=== PATIENT | female | born 1995 | race Caucasian/White ===

== ENCOUNTER 2016-09-11 | Emergency (ER) | END 2016-09-11 02:15 | disposition left against medical advice (07) | LOC: ER | DX: Z53.21 Procedure and treatment not carried out due to patient leaving prior to being seen by health care provider (principal) ==

== ENCOUNTER 2017-02-13 10:50 | Emergency (ER) | payer BC ==
[2017-02-13 10:56] VITALS: BP 142/94
--- NOTE | 2017-02-13 11:11 | ER Document Report ---
ED Oral Problem - General Chief Complaint: Toothache Stated Complaint: MOUTH PAIN Time Seen by Provider: 02/13/17 11:06 Mode of Arrival: Ambulatory Information source: Patient TRAVEL OUTSIDE OF THE [place] IN LAST 30 DAYS: No - HPI Patient complains to provider of: Toothache Onset: Other - 3 days Onset: Gradual Quality of pain: Achy Severity: Moderate Pain Level: 3 Context: Fractured tooth Associated symptoms: None Notes: Patient is a 21-year-old female presenting to the emergency room complaining of dental pain, she states that approximately 6 months ago she broke a tooth, the left mandibular molar, she has been having intermittent problems with the tooth since, increasing over the past 3 days, she reports feeling a pain sensation throughout her lower jaw at times, and some facial swelling, denies any fevers, no pus drainage, no new injury, she does not currently have a dentist and has not been seen by dentist since the tooth broke - Related Data Allergies/Adverse Reactions: tuberculin,PPD,multi-puncture Allergy (Intermediate, Verified 02/13/17 11:12) Hives Past Medical History - General Information source: Patient - Social History Smoking Status: Current Every Day Smoker Chew tobacco use (# tins/day): No Frequency of alcohol use: None Drug Abuse: None Family History: Reviewed & Not Pertinent Pulmonary Medical History: Reports: Hx Asthma Renal/ Medical History: Denies: Hx Peritoneal Dialysis Surgical Hx: Negative Review of Systems - Review of Systems Constitutional: No symptoms reported EENT: See HPI, Mouth pain Cardiovascular: No symptoms reported Respiratory: No symptoms reported Gastrointestinal: No symptoms reported Genitourinary: No symptoms reported Female Genitourinary: No symptoms reported Musculoskeletal: No symptoms reported Skin: No symptoms reported Hematologic/Lymphatic: No symptoms reported Neurological/Psychological: No symptoms reported -: Yes All other systems reviewed and negative Physical Exam - Vital signs Vitals: Temp Pulse Resp BP Pulse Ox 98.7 F 106 H 18 142/94 H 98 02/13/17 10:54 02/13/17 10:54 02/13/17 10:54 02/13/17 10:54 02/13/17 10:54 Interpretation: Normal - General General appearance: Appears well, Alert In distress: None - HEENT Head: Normocephalic, Atraumatic Eyes: Normal Conjunctiva: Normal Extraocular movements intact: Yes Eyelashes: Normal Pupils: PERRL Mouth/Lips: Dental fracture - Mild swelling erythema and swelling surrounding tooth #17 with dental fracture Mucous membranes: Normal Teeth diagram: 1 - Dental fracture Pharynx: Normal Neck: Normal - Respiratory Respiratory status: No respiratory distress - Cardiovascular Rhythm: Regular - Abdominal Inspection: Normal, Obese - Back Back: Normal - Extremities General upper extremity: Normal inspection, Normal color, Normal ROM, Normal temperature General lower extremity: Normal inspection, Normal color, Normal ROM, Normal temperature, Normal weight bearing. No: Marivel's sign - Neurological Neuro grossly intact: Yes Cognition: Normal Orientation: AAOx4 Shaka Coma Scale Eye Opening: Spontaneous [place] Coma Scale Verbal: Oriented [place] Coma Scale Motor: Obeys Commands Shaka Coma Scale Total: 15 Speech: Normal Motor strength normal: LUE, RUE, LLE, RLE Sensory: Normal - Psychological Associated symptoms: Normal affect, Normal mood - Skin Skin Temperature: Warm Skin Moisture: Dry Skin Color: Normal Course - Re-evaluation Re-evalutation: 02/13/17 11:35 Patient with pain from dental fracture, mild surrounding erythema, placed on antibiotics and provided with pain medication, instructed to follow-up with a dentist, patient acknowledges understanding and agreement with this plan - Vital Signs Vital signs: Temp Pulse Resp BP Pulse Ox 98.7 F 106 H 18 142/94 H 98 02/13/17 10:54 02/13/17 10:54 02/13/17 10:54 02/13/17 10:54 02/13/17 10:54 Discharge - Discharge Clinical Impression: Toothache Condition: Stable Disposition: HOME, SELF-CARE Instructions: [facility], Oral Narcotic Medication ([facility]), Penicillin V K ([facility]), Toothache ([facility]) Additional Instructions: Follow up with your primary care provider and a dentist in one to 2 days. Return to the emergency room immediately if symptoms worsen or any additional concerns. Prescriptions: Hydrocodone/Acetaminophen [Hydrocodon-Acetaminophen 5-325] 1 each PO Q6 #20 tablet Penicillin V Potassium [Penicillin Vk 500 mg Tablet] 500 mg PO TID #30 tablet Forms: Smoking Cessation Education, Return to Work
== END 2017-02-13 11:20 | disposition home or self-care (01) ==
LOC: ER 10:50
DX: K08.89 Other specified disorders of teeth and supporting structures (principal); F17.200 Nicotine dependence, unspecified, uncomplicated
CPT/HCPCS: 99282

== ENCOUNTER 2017-02-17 13:10 | Emergency (ER) | payer BC ==
[2017-02-17] MEDS ORDERED: BUPIVACAINE HCL 0.5 % INJ/PF 30 ML SDV INJ ONE (14:30)
--- NOTE | 2017-02-17 14:33 | ER Document Report ---
ED Oral Problem - General Chief Complaint: Toothache Stated Complaint: MOUTH PAIN Time Seen by Provider: 02/17/17 14:17 TRAVEL OUTSIDE OF THE U.S. IN LAST 30 DAYS: No - HPI Patient complains to provider of: Toothache Onset: Last week Onset: Gradual Quality of pain: Achy, Throbbing Severity: Moderate Context: Fractured tooth Associated symptoms: denies: None, Chills, Cough, Decreased appetite, Dental decay, Difficulty speaking, Drainage, Drooling, Earache, Facial pain, Fever, Headache, Jaw pain, Short of breath, Sweaty, Toothache, Tongue swelling, Unable to swallow, White patches in mouth, Other Worsened by: Cold Relieved by: Nothing Similar symptoms previously: No Recently seen / treated by doctor/dentist: No - States that she is no longer able to afford her Dentist. - Related Data Allergies/Adverse Reactions: tuberculin,PPD,multi-puncture Allergy (Intermediate, Verified 02/17/17 13:15) Hives Past Medical History - Social History Smoking Status: Current Every Day Smoker Chew tobacco use (# tins/day): No Frequency of alcohol use: None Drug Abuse: None Family History: Reviewed & Not Pertinent Pulmonary Medical History: Reports: Hx Asthma Renal/ Medical History: Denies: Hx Peritoneal Dialysis Review of Systems - Review of Systems Constitutional: No symptoms reported EENT: See HPI -: Yes All other systems reviewed and negative Physical Exam - Vital signs Vitals: Temp Pulse Resp BP Pulse Ox 97.9 F 108 H 18 124/81 97 02/17/17 13:14 02/17/17 13:14 02/17/17 13:14 02/17/17 13:14 02/17/17 13:14 - General General appearance: Appears well, Alert In distress: None - HEENT Mouth/Lips: Caries, Dental fracture - Tooth 17 without surrounding abscess. Pharynx: Normal. No: Peritonsillar abscess, Retropharyngeal abscess, Potential airway comprom. Neck: Normal, Other - No evidence of Marv's angina - Respiratory Respiratory status: No respiratory distress Chest status: Nontender Breath sounds: Normal Chest palpation: Normal - Cardiovascular Rhythm: Regular Heart sounds: Normal auscultation, S1 appreciated, S2 appreciated Gallop: None auscultated Pulses: Normal: Radial Course - Re-evaluation Re-evalutation: 02/17/17 14:30 Presentation is most consistent with likely an infected tooth. Airway is patent. Vitals within normal limits. Patient is able swallow without any difficulty. There is no significant facial swelling. Patient will continue antibiotics. I've instructed to follow-up with dentistry as earliest ability for definitive management. Return precautions and follow-up recommendations have been discussed at length. - Vital Signs Vital signs: Temp Pulse Resp BP Pulse Ox 98.4 F 89 16 120/79 98 02/17/17 15:19 02/17/17 15:19 02/17/17 15:19 02/17/17 15:19 02/17/17 15:19 Discharge - Discharge Clinical Impression: Toothache Condition: Good Disposition: HOME, SELF-CARE Additional Instructions: TOOTHACHE: Your pain is due to dental decay. The tooth must be repaired in order for you to feel better. You will, therefore, be referred to a dentist. We do not have dentists on the staff at [facility]. Severe swelling or drainage around a tooth usually means a dental abscess. This also requires evaluation and treatment by the dentist, but antibiotics may be prescribed while awaiting dental treatment. You should be rechecked immediately if you develop major swelling of the face, increasing pain, a lump in the jaw or gums, headache, difficulty swallowing, or fever. PENICILLIN V K: You have been given a prescription for Penicillin VK. Your physician has determined that this is the best antibiotic for your condition. Pen VK can be taken with meals, however more of the antibiotic gets into the bloodstream if it's taken on an empty stomach. Penicillin usually has no side effects. However, allergy to penicillins is common. If you have had an allergic reaction to any drug of the penicillin family, you should never take any other penicillin. Notify your doctor at once if you develop hives, itching, swelling, faintness, or shortness of breath. [facility] Address: [address], [place] [address] [facility] Address: [address], [place] [address] FOLLOW-UP CARE: You have been referred for follow-up care to the dentists listed below. Call the dentists office for an appointment as you were instructed or within the next two days. If you experience worsening or a significant change in your symptoms, notify the physician immediately or return to the Emergency Department at any time for re-evaluation. [facility] [address] [place], [place] mornings, by appointment [facility] [address] [place] [address] [facility] [address] [facility] [address] [facility] [address] [email or web address] [address] [place] [address] Wednesday- 8:00am to 5:00 pm Will see patients from other [facility]. Charges based on income and family size and accepts Medicare, Medicaid, and Insurances Will pull molars [facility] [address] Hours of Operation 8:00 am - 4:30 pm weekdays The following dental offices accept Medicaid: [facility] [address] [place] Dr. Howard Dr. Tong Mainor Young L[place], and [facility] Dr. Manrique ([place]) Dr. Robertson ([place]) [facility] Drs. Adkins and Fabio ([place]) Dr. Valadez ([place]) [facility] Dr. Mcginnis ([place]) Drs. Pink and ([place]) Medicaid Care Line Forms: Return to Work
[2017-02-17 15:25] VITALS: BP 120/79
== END 2017-02-17 15:22 | disposition home or self-care (01) ==
LOC: ER 13:10
DX: K02.9 Dental caries, unspecified (principal); K08.89 Other specified disorders of teeth and supporting structures; F17.200 Nicotine dependence, unspecified, uncomplicated; J45.909 Unspecified asthma, uncomplicated; Z59.9 Problem related to housing and economic circumstances, unspecified; Z88.7 Allergy status to serum and vaccine
CPT/HCPCS: 99282

== ENCOUNTER 2017-03-07 22:03 | Emergency (ER) | payer BC ==
[2017-03-07 23:28] LABS: APPEARANCE,URINE SLIGHTLY-CLOUDY; BILIRUBIN,URINE NEGATIVE (NEGATIVE); GLUCOSE, URINE NEGATIVE (NEGATIVE); KETONES,URINE NEGATIVE (NEGATIVE); LEUKOCYTE ESTERASE,URINE TRACE (NEGATIVE); NITRITE,URINE NEGATIVE (NEGATIVE); PROTEIN,URINE NEGATIVE (NEGATIVE); URINE SPECIFIC GRAVITY 1.036
[2017-03-08] MEDS ORDERED: BUTALB/ACETAMINOPHEN/CAFFEINE 1 TAB EACH PO ONE (00:49)
--- NOTE | 2017-03-08 00:55 | ER Document Report ---
ED General - General Chief Complaint: Fall Stated Complaint: FALL, POSSIBLE SYNCOPAL EPISODE Time Seen by Provider: 03/07/17 23:50 Notes: Patient is a 21-year-old female with past medical history of morbid obesity who presents after she had a syncopal episode 48 hours ago. Patient states that she was walking to work, became lightheaded and then had an episode of syncope. She states she remembers falling to the ground and striking her right shoulder and right knee as well as the right side of her head. States that she was able to get up, ambulate and go to work and function throughout the day without difficulty. She was states that since that time she has had a dull, constant throbbing pain to her right shoulder right knee. Movement of these areas worsens the pain. She has not tried anything to improve the pain. She also notes that she has had a dull, constant throbbing headache since the injury. The headache has been unchanged since onset. She denies any vomiting, weakness, numbness, or altered mental status. She does not use anticoagulation. She does not try to think to treat headache. She has not seen her primary care doctor regarding today's concerns. He denies any history of sudden cardiac within her family. She does admit to poor fluid intake and her significant at the bedside notes that she was never drinks water only soda and tea. TRAVEL OUTSIDE OF THE [place] IN LAST 30 DAYS: No - Related Data Allergies/Adverse Reactions: tuberculin,PPD,multi-puncture Allergy (Intermediate, Verified 03/07/17 22:41) Hives Past Medical History - General Information source: Patient - Social History Smoking Status: Never Smoker Frequency of alcohol use: None Drug Abuse: None Lives with: Spouse/Significant other Family History: Reviewed & Not Pertinent Patient has suicidal ideation: No Patient has homicidal ideation: No Pulmonary Medical History: Reports: Hx Asthma Renal/ Medical History: Denies: Hx Peritoneal Dialysis Review of Systems - Review of Systems Notes: Constitutional: Negative for fever. HENT: Negative for sore throat. Eyes: Negative for visual changes. Cardiovascular: Negative for chest pain. Respiratory: Negative for shortness of breath. Gastrointestinal: Negative for abdominal pain, vomiting or diarrhea. Genitourinary: Negative for dysuria. Musculoskeletal: Positive for right shoulder and right knee pain Skin: Negative for rash. Neurological: Positive for headache 10 point ROS negative except as marked above and in HPI. Physical Exam - Vital signs Vitals: Temp Pulse Resp BP Pulse Ox 98.7 F 105 H 20 141/76 H 97 03/07/17 22:39 03/07/17 22:39 03/07/17 22:39 03/07/17 22:39 03/07/17 22:39 Interpretation: Tachycardic Notes: PHYSICAL EXAMINATION: GENERAL: Well-appearing, no acute distress. HEAD: Atraumatic, normocephalic. EYES: Pupils equal round and reactive to light, extraocular movements intact, sclera anicteric, conjunctiva are normal. ENT: nares patent, no oral pharyngeal trauma. No hemotympanum, no Pollock's sign , no raccoon eyes. NECK: No midline cervical spine tenderness. Patient able to move their head to 45 bilaterally without any discomfort. LUNGS: Breath sounds clear to auscultation bilaterally and equal. No wheezes rales or rhonchi. HEART: Regular rate and rhythm without murmurs. CHEST WALL: No ecchymosis over the chest wall. ABDOMEN: Soft, nontender, normoactive bowel sounds. No guarding, no rebound. No abdominal bruising EXTREMITIES: Able to flex the right knee to 90. There is slight ecchymosis over the patellar surface of the right knee. Mild bruising over the lateral aspect of the right shoulder. Otherwise full range of motion of the shoulder. BACK: No midline spinal tenderness, step-offs, or deformities. NEUROLOGICAL: Face symmetric. Tongue protrudes midline. Extraocular motions intact. Pupils are 2 mm and equally reactive. Normal speech, normal gait. 5 out of 5 strength in both the distal and proximal upper and lower extremities bilaterally. Sensation is grossly intact throughout. Finger to nose testing normal. Pronator drift normal. PSYCH: Normal mood, normal affect. SKIN: Warm, Dry, normal turgor, no rashes or lesions noted. Course - Re-evaluation Re-evalutation: 03/08/17 00:49 Presentation of syncope 2 days ago likely secondary to dehydration. Patient normotensive, alert, without focal neurologic deficits at time of arrival. Denies syncope was during exertion. No preceding symptoms of palpitations, chest pain, or shortness of breath. Patient asymptomatic at time of arrival. EKG is without evidence of HCOM, right heart strain, ST changes to suggest ischemia, prolong QTc, delta wave, epsilon wave, or Brugada syndrome. Patient denies any family history of sudden cardiac , personal history of of structural heart disease. Patient denies any symptoms to suggest an acute PE, IN , TAD, SAH, seizure, or acute GI bleed as the etiology of their syncope today. On exam, no murmurs to suggest critical aortic stenosis as possible etiology. Patient does report that during her syncopal episode she did land on her right shoulder and right knee and has had pain to these areas since that time. Films of the right shoulder and knee have been obtained does not show any acute fracture or dislocation. Patient was placed in her right knee immobilizer and provided crutches. Suspect soft tissue contusion based on ecchymosis on examination. Patient is able to flex her knee to 90. Patient did have an additional fall today she states due to her right knee giving out on her. She did not sustain any additional injuries during today's fall. Based on overall clinical history, exam findings, vitals, and patients appearance, I feel it is safe for patient to be discharged home at this time with close outpatient follow -up and strict return precautions. Patient is in agreement with this plan, has verbalized indications for return to ED, and questions have been answered. - Vital Signs Vital signs: Temp Pulse Resp BP Pulse Ox 98.7 F 105 H 20 141/76 H 97 03/07/17 22:39 03/07/17 22:39 03/07/17 22:39 03/07/17 22:39 03/07/17 22:39 - Laboratory Laboratory results interpreted by me: 03/07/17 22:50 Urine Urobilinogen 4.0 H Ur Leukocyte Esterase TRACE H Urine Ascorbic Acid 20 H - Diagnostic Test Radiology reviewed: Image reviewed, Reports reviewed Radiology results interpreted by me: 03/08/17 02:33 Right shoulder film: No acute fracture or dislocation Right knee x-ray: No acute fracture dislocation Discharge - Discharge Clinical Impression: Syncope Qualifiers: Syncope type: unspecified Qualified Code(s): R55 - Syncope and collapse Right shoulder pain Qualifiers: Chronicity: acute Qualified Code(s): M25.511 - Pain in right shoulder Right knee pain Qualifiers: Chronicity: acute Qualified Code(s): M25.561 - Pain in right knee Condition: Good Disposition: HOME, SELF-CARE Additional Instructions: You were seen today after an episode of passing out. Your EKG here is normal. At this time, we do not feel that your episode of passing out was from any life- threatening cause. Please drink plenty of fluids over the next several days. Return to emergency department if you have any further episodes of syncope, headache, weakness, numbness, chest pain, or shortness of breath. Please follow up closely with your primary care physician. Your x-ray does not show any acute fracture today. You likely have a soft tissue injury. You should continue to take anti-inflammatories such as ibuprofen 600 mg every 6 hours. Continue to apply ice to the area is much your able. Please follow-up with your primary care physician if you do not have improving your symptoms in the next 1-2 weeks. Please return immediately if you develop weakness, numbness, spreading redness from the area, or any other symptoms that are concerning to you.
--- NOTE | 2017-03-08 01:42 | RADIOLOGY REPORT (SQ) ---
EXAM DESCRIPTION: KNEE RIGHT 3 VIEWS COMPLETED DATE/TIME: 03/08/2017 1:31 am REASON FOR STUDY: fall, pain COMPARISON: None. NUMBER OF VIEWS: Three views. TECHNIQUE: AP, lateral, and sunrise patella radiographic images acquired of the right knee. LIMITATIONS: None. FINDINGS: MINERALIZATION: Normal. BONES: No acute fracture or dislocation. JOINT: No effusion. SOFT TISSUES: No soft tissue swelling. No radio-opaque foreign body. IMPRESSION: No radiographic evidence of acute injury. TECHNICAL DOCUMENTATION: JOB ID: [id number] 2010 [employer]- All Rights Reserved
--- NOTE | 2017-03-08 01:57 | RADIOLOGY REPORT (SQ) ---
EXAM DESCRIPTION: SHOULDER RIGHT 2 OR MORE VIEWS COMPLETED DATE/TIME: 03/08/2017 1:31 am REASON FOR STUDY: fall, pain COMPARISON: None. NUMBER OF VIEWS: Three views. TECHNIQUE: Internal rotation, external rotation, and Y view images acquired of the right shoulder. LIMITATIONS: None. FINDINGS: MINERALIZATION: Normal. BONES: No acute fracture or dislocation. JOINTS: No dislocation. VISUALIZED LUNGS AND RIBS: No pneumothorax. No displaced rib fracture. SOFT TISSUES: No radiopaque foreign body. IMPRESSION: No radiographic evidence of acute injury. TECHNICAL DOCUMENTATION: JOB ID: [id number] 2010 [employer]- All Rights Reserved
[2017-03-08 02:45] VITALS: BP 116/54
--- NOTE | 2017-03-08 19:10 | EKG REPORT ---
SEVERITY:- NORMAL ECG - SINUS RHYTHM : Confirmed by: Reema Schwartz 08-Mar-2017 19:09:12
== END 2017-03-08 02:44 | disposition home or self-care (01) ==
LOC: ER 22:03
DX: R55 Syncope and collapse (principal); M25.511 Pain in right shoulder; M25.561 Pain in right knee; S09.90XA Unspecified injury of head, initial encounter; E66.01 Morbid (severe) obesity due to excess calories; W19.XXXA Unspecified fall, initial encounter
CPT/HCPCS: 93005; 99284; 81025; 81001; 73562; 73030; 93010; J3490

== ENCOUNTER 2017-03-12 12:11 | Emergency (ER) | payer BC ==
[2017-03-12] MEDS ORDERED: KETOROLAC TROMETHAMINE INJ/PF 30 MG/1 ML SDV IV ONE (12:53)
[2017-03-12] MEDS ORDERED: PROCHLORPERAZINE EDISYLATE INJ 10 MG/2 ML VIAL IV ONE (12:53)
[2017-03-12] MEDS ORDERED: DIPHENHYDRAMINE HCL 50 MG/ML VIAL IV ONE (12:53)
[2017-03-12] MEDS ORDERED: NORMAL SALINE 1000 ML 1,000 ML IV ONE (12:54)
[2017-03-12] MEDS ORDERED: LIDOCAINE 2% VISCOUS SOLN 20 ML UDCUP PO ONE (12:55)
--- NOTE | 2017-03-12 12:59 | ER Document Report ---
ED Headache - General Chief Complaint: Toothache Stated Complaint: TOOTHACHE Time Seen by Provider: 03/12/17 12:37 Mode of Arrival: Ambulatory Information source: Patient Notes: 21-year-old female presents to ED for complaint of headache that is getting worse with dental pain on the lower left jaw. She states she is called several dentist and they did not have an appointment and that her insurance would not cover dental pain. She states her pain is a 5 out of 5 TRAVEL OUTSIDE OF THE [place] IN LAST 30 DAYS: No - HPI Patient reports: Other - Headache and dental pain Onset: Other - Progressive over the last couple weeks Timing: Still present Quality of pain: Achy, Dull Severity: Severe Pain Level: 5 Associated symptoms: Other - Dental pain and headache Exacerbated by: Light, Noise Similar symptoms previously: Yes Recently seen / treated by doctor: No - Related Data Allergies/Adverse Reactions: tuberculin,PPD,multi-puncture Allergy (Intermediate, Verified 03/07/17 22:41) Hives Past Medical History - General Information source: Patient - Social History Smoking Status: Current Every Day Smoker Cigarette use (# per day): Yes - One half pack per day Chew tobacco use (# tins/day): No Smoking Education Provided: Yes - Less than 2 minutes Frequency of alcohol use: None Drug Abuse: None Occupation: [employer] Lives with: Spouse/Significant other Family History: CAD, COPD, DM, Hyperlipidemia, Hypertension, Malignancy. denies : Arthritis, CVA, Thyroid Disfunction Patient has suicidal ideation: No Patient has homicidal ideation: No - Past Medical History Cardiac Medical History: Reports: None Pulmonary Medical History: Reports: Hx Asthma EENT Medical History: Reports: None Neurological Medical History: Reports: Hx Migraine Endocrine Medical History: Reports: None Renal/ Medical History: Reports: None Malignancy Medical History: Reports: None GI Medical History: Reports: None Musculoskeltal Medical History: Reports None Skin Medical History: Reports None Psychiatric Medical History: Reports: None Traumatic Medical History: Reports: None Infectious Medical History: Reports: None Past Surgical History: Reports: Hx Myringotomy, Other - Pilonidal cyst - Immunizations Immunizations up to date: No Hx Diphtheria, Pertussis, Tetanus Vaccination: No Review of Systems - Review of Systems Constitutional: No symptoms reported EENT: Mouth pain, Dental problem Cardiovascular: No symptoms reported Respiratory: No symptoms reported Gastrointestinal: No symptoms reported Genitourinary: No symptoms reported Female Genitourinary: No symptoms reported Musculoskeletal: No symptoms reported Skin: No symptoms reported Hematologic/Lymphatic: No symptoms reported Neurological/Psychological: Headaches -: Yes All other systems reviewed and negative Physical Exam - Vital signs Vitals: Temp Resp BP Pulse Ox 98.1 F 16 149/86 H 99 03/12/17 12:38 03/12/17 12:38 03/12/17 12:38 03/12/17 12:38 Interpretation: Normal - General General appearance: Appears well, Alert - HEENT Head: Normocephalic, Atraumatic Eyes: Normal Pupils: PERRL Ears: Normal External canal: Normal Tympanic membrane: Normal Sinus: Normal Nasal: Normal Mouth/Lips: Caries Mucous membranes: Normal Teeth diagram: 1 - Part of tooth broken off and medicine she had some type of green material in the tooth Pharynx: Normal Neck: Normal - Respiratory Respiratory status: No respiratory distress Chest status: Nontender Breath sounds: Normal Chest palpation: Normal - Cardiovascular Rhythm: Regular Heart sounds: Normal auscultation Murmur: No - Abdominal Inspection: Normal Distension: No distension Bowel sounds: Normal Tenderness: Nontender Organomegaly: No organomegaly - Back Back: Normal, Nontender - Extremities General upper extremity: Normal inspection, Nontender, Normal color, Normal ROM , Normal temperature General lower extremity: Normal inspection, Nontender, Normal color, Normal ROM , Normal temperature, Normal weight bearing. No: Marivel's sign - Neurological Neuro grossly intact: Yes Cognition: Normal Orientation: AAOx4 Shaka Coma Scale Eye Opening: Spontaneous Shaka Coma Scale Verbal: Oriented [place] Coma Scale Motor: Obeys Commands [place] Coma Scale Total: 15 Speech: Normal Cranial nerves: Normal Cerebellar coordination: Normal Motor strength normal: LUE, RUE, LLE, RLE Additional motor exam normals: Equal child attendant Babinski reflex: Normal (flexor plantar) Sensory: Normal Biceps - Reflex grade: 2 = Normal Triceps - Reflex grade: 2 = Normal Brachioradialis - Reflex grade: 2 = Normal Knee - Reflex grade: 2 = Normal Ankle - Reflex grade: 2 = Normal - Psychological Associated symptoms: Normal affect, Normal mood - Skin Skin Temperature: Warm Skin Moisture: Dry Skin Color: Normal Course - Re-evaluation Re-evalutation: 03/12/17 14:18 Received relief from headache with use of Compazine Toradol and Benadryl and IV fluids. Patient was discharged home with prescription for Compazine to take by mouth for her headaches. Patient also instructed to follow-up with dentist for her dental problem. - Vital Signs Vital signs: Temp Pulse Resp BP Pulse Ox 98.1 F 76 18 131/76 H 99 03/12/17 14:06 03/12/17 14:06 03/12/17 14:06 03/12/17 14:06 03/12/17 14:06 Discharge - Discharge Clinical Impression: Pain due to dental caries Headache Qualifiers: Headache type: unspecified Headache chronicity pattern: unspecified pattern Intractability: not intractable Qualified Code(s): R51 - Headache Condition: Stable Disposition: HOME, SELF-CARE Instructions: Family Physicians / Practices Additional Instructions: TOOTHACHE: Your pain is due to dental decay. The tooth must be repaired in order for you to feel better. You will, therefore, be referred to a dentist. We do not have dentists on the staff at [facility]. Severe swelling or drainage around a tooth usually means a dental abscess. This also requires evaluation and treatment by the dentist, but antibiotics may be prescribed while awaiting dental treatment. You should be rechecked immediately if you develop major swelling of the face, increasing pain, a lump in the jaw or gums, headache, difficulty swallowing, or fever. HEADACHE: The physician does not feel that the headache you are experiencing has a serious underlying cause. Most headaches are due to emotional stress, with resultant muscle tension (tension headache). Occasionally, headaches are secondary to changes in the blood vessels of the scalp (vascular headache and migraine headache). Sometimes, a headache is the first symptom of another developing illness, such as a viral infection. You have no evidence of stroke, bleeding, meningitis, or other serious cause of your headache. The treatment of headaches varies with the severity and cause of the pain. Not all headaches need pain shots. In fact, there is evidence that using narcotics for headaches may make them worse in the long run. The physician will determine the therapy that's in your best interest. If you develop a fever, if the headache is different from any you've previously experienced, or if the headache progressively worsens, then call your physician at once or go to the emergency room. USE OF DIPHENHYDRAMINE: Diphenhydramine (Benadryl) is an antihistamine and has been recommended to help treat your headache and to prevent side effects of other medications used to treat headaches. The medication can be repeated four times daily. Age Elixir (12.5 mg/tsp) 25 mg pill adult 1-2 tabs Antihistamines may cause drowsiness, especially with the first dose. Do not operate machinery or drive while under the effects of the medication. Do not combine the medication with alcohol, or with any other medication without talking to your doctor. INTRAVENOUS COMPAZINE FOR HEADACHE: You have received therapy for headaches, using intravenous Compazine. This treatment is dramatically successful in relieving the headache in about 50 percent of cases. When it works, it provides a rapid method of eliminating the headache without resorting to narcotics (and the problems associated with them). Most patients still feel fully alert after the Compazine, but others may be slightly drowsy. It's best not to drive or work with machinery for six to eight hours. Do not take alcohol or other medication unless you discuss it with the doctor. If you develop tightness and spasms in your muscles, especially the neck and tongue, you should return. This is a side effect which can be treated. TORADOL INJECTION: You have been given an injection of ketorolac tromethamine (Toradol). This is an excellent, safe drug for pain control. It also has potent antiinflammatory action. You should have significant pain relief within about one hour. Toradol is not addicting and is non-sedating. It does not interfere with driving or work. Call or return if you develop itching, hives, shortness of breath, or rash. FOLLOW-UP CARE: You have been referred for follow-up care to the dentists listed below. Call the dentists office for an appointment as you were instructed or within the next two days. If you experience worsening or a significant change in your symptoms, notify the physician immediately or return to the Emergency Department at any time for re-evaluation. [address] Wednesday mornings, by appointment [facility] [address] [place] [address] [facility] [address] [facility] [address] [facility] ([facility]) [facility] [address] [email or web address] [address] [place] [address] Wednesday- 8:00am to 5:00 pm Will see patients from other [facility]. Charges based on income and family size and accepts Medicare, Medicaid, and Insurances Will pull molars [facility] [address] Hours of Operation 8:00 am - 4:30 pm weekdays The following dental offices accept Medicaid: [facility] [address]. [address] [place] Dr. Howard Dr. Tong Mainor Young, [place], and [place]ben oral surgery Dr. Manrique ([place]) Dr. Robertson ([place]) [facility] Drs. Adkins and Fabio ([place]) Dr. Valadez ([place]) [facility] Dr. Mcginnis ([place]) Drs. Pink and ([place]) Medicaid Care Line Prescriptions: Prochlorperazine Maleate [Compazine 10 mg Tablet] 10 mg PO Q8HP PRN #10 tablet PRN Reason: Forms: Smoking Cessation Education, Return to Work
[2017-03-12 14:10] VITALS: BP 131/76
== END 2017-03-12 14:10 | disposition home or self-care (01) ==
LOC: ER 12:11
DX: K02.9 Dental caries, unspecified (principal); K08.89 Other specified disorders of teeth and supporting structures; R51 Headache; J45.909 Unspecified asthma, uncomplicated; F17.210 Nicotine dependence, cigarettes, uncomplicated; Z71.6 Tobacco abuse counseling; Z88.7 Allergy status to serum and vaccine
CPT/HCPCS: 99282; 96361; 96374; 96375; J1200; J3490; J1885; J0780; J7030

== ENCOUNTER 2017-06-23 08:08 | Emergency (ER) | payer SELFPAY ==
[2017-06-23] MEDS ORDERED: KETOROLAC TROMETHAMINE 10 MG TABLET PO ONE (09:49)
[2017-06-23] MEDS ORDERED: TRAMADOL HCL 50 MG TABLET PO ONE (09:49)
[2017-06-23] MEDS ORDERED: LIDOCAINE 5% (700 MG) TRANSDERMAL ADH..PATCH TP ONE (09:49)
--- NOTE | 2017-06-23 11:05 | RADIOLOGY REPORT (SQ) ---
EXAM DESCRIPTION: L SPINE WHOLE COMPLETED DATE/TIME: 06/23/2017 10:52 am REASON FOR STUDY: fall pain back COMPARISON: None. NUMBER OF VIEWS: Five views including obliques. TECHNIQUE: AP, lateral, oblique, and sacral radiographic images acquired of the lumbar spine. LIMITATIONS: None. FINDINGS: MINERALIZATION: Normal. SEGMENTATION: Normal. No transitional anatomy. ALIGNMENT: Normal. VERTEBRAE: Maintained height. No fracture or worrisome bone lesion. DISCS: Preserved height. No significant osteophytes or end plate irregularity. POSTERIOR ELEMENTS: Pedicles and facets are intact. No pars defect or posterior arch defects. HARDWARE: None in the spine. PARASPINAL SOFT TISSUES: Normal. PELVIS: Intact as visualized. No fractures or worrisome bone lesions. SI joints intact. OTHER: No other significant finding. IMPRESSION: NORMAL 5 VIEW LUMBAR SPINE. TECHNICAL DOCUMENTATION: JOB ID: [id number] [employer]- All Rights Reserved
[2017-06-23] MEDS ORDERED: HYDROMORPHONE HCL INJ/PF 2 MG/ML AMPULE IM ONE (11:38)
--- NOTE | 2017-06-23 11:43 | ER Document Report ---
ED General - General Chief Complaint: Back Pain Stated Complaint: FALL BACK PAIN Time Seen by Provider: 06/23/17 09:43 TRAVEL OUTSIDE OF THE [place] IN LAST 30 DAYS: No - HPI Patient complains to provider of: Lower back pain Notes: Patient coming in for low back pain stating occurred after she fell in the shower. Denies any loss consciousness. Patient reports her low back denies any numbness tingling denies any fevers or chills. Patient denies any bowel or bladder incontinence no saddle anesthesias. - Related Data Allergies/Adverse Reactions: tuberculin,PPD,multi-puncture Allergy (Intermediate, Verified 06/23/17 08:11) Hives Past Medical History - Social History Smoking Status: Never Smoker Family History: CAD, COPD, DM, Hyperlipidemia, Hypertension, Malignancy. denies : Arthritis, CVA, Thyroid Disfunction Patient has suicidal ideation: No Patient has homicidal ideation: No Pulmonary Medical History: Reports: Hx Asthma Neurological Medical History: Reports: Hx Migraine Renal/ Medical History: Denies: Hx Peritoneal Dialysis Past Surgical History: Reports: Hx Myringotomy, Other - Pilonidal cyst - Immunizations Immunizations up to date: No Hx Diphtheria, Pertussis, Tetanus Vaccination: No Review of Systems - Review of Systems Constitutional: No symptoms reported EENT: No symptoms reported Cardiovascular: No symptoms reported Respiratory: No symptoms reported Gastrointestinal: No symptoms reported Genitourinary: No symptoms reported Female Genitourinary: No symptoms reported Musculoskeletal: Back pain Skin: No symptoms reported Hematologic/Lymphatic: No symptoms reported Neurological/Psychological: No symptoms reported -: Yes All other systems reviewed and negative Physical Exam - Vital signs Vitals: Temp Pulse BP Pulse Ox 97.9 F 84 142/72 H 99 06/23/17 08:18 06/23/17 08:18 06/23/17 08:18 06/23/17 08:18 Interpretation: Normal - General General appearance: Appears well, Alert - HEENT Head: Normocephalic, Atraumatic Eyes: Normal Pupils: PERRL - Respiratory Respiratory status: No respiratory distress Chest status: Nontender Breath sounds: Normal Chest palpation: Normal - Cardiovascular Rhythm: Regular Heart sounds: Normal auscultation Murmur: No - Abdominal Inspection: Normal, Morbidly Obese Distension: No distension Bowel sounds: Normal Tenderness: Nontender Organomegaly: No organomegaly - Back Back: Normal, Tender - mid-line lowwer - Extremities General upper extremity: Normal inspection, Nontender, Normal color, Normal ROM , Normal temperature General lower extremity: Normal inspection, Nontender, Normal color, Normal ROM , Normal temperature, Normal weight bearing. No: Marivel's sign - Neurological Neuro grossly intact: Yes Cognition: Normal Orientation: AAOx4 Shaka Coma Scale Eye Opening: Spontaneous Shaka Coma Scale Verbal: Oriented [place] Coma Scale Motor: Obeys Commands [place] Coma Scale Total: 15 Speech: Normal Motor strength normal: LUE, RUE, LLE, RLE Sensory: Normal - Psychological Associated symptoms: Normal affect, Normal mood - Skin Skin Temperature: Warm Skin Moisture: Dry Skin Color: Normal Course - Re-evaluation Re-evalutation: 06/23/17 14:55 The patient presents with low back pain without signs of spinal cord compression , cauda equina syndrome, infection, aneurysm, or other serious etiology. The patient is neurologically intact. Given the extremely low risk of these diagnoses further testing and evaluation for these possibilities does not appear to be indicated at this time. The patient has been instructed to return if the symptoms worsen or change in any way. - Vital Signs Vital signs: Temp Pulse Resp BP Pulse Ox 98.0 F 67 20 116/65 100 06/23/17 11:53 06/23/17 11:53 06/23/17 11:53 06/23/17 11:53 06/23/17 11:53 Discharge - Discharge Clinical Impression: Back pain Qualifiers: Back pain location: low back pain Chronicity: acute Back pain laterality: midline Sciatica presence: without sciatica Qualified Code(s): M54.5 - Low back pain Disposition: HOME, SELF-CARE Instructions: Ice Packs ([facility]), Low Back Pain ([facility]), Oral Narcotic Medication ( [facility]), Warm Packs ([facility]) Additional Instructions: Your x-ray today do not show any significant pathology. Please take Tylenol Motrin for pain take Ultram for severe pain return to ER symptoms worsen he may also use ice packs and warm packs. Prescriptions: Ibuprofen [Motrin 600 Mg Tablet] 600 mg PO TID #30 tablet Tramadol HCl [Ultram 50 mg Tablet] 50 mg PO ASDIR PRN #14 tablet PRN Reason: Forms: Return to Work
[2017-06-23 12:04] VITALS: BP 116/65
== END 2017-06-23 11:59 | disposition home or self-care (01) ==
LOC: ER 08:08
DX: M54.5 Low back pain (principal); W18.2XXA Fall in (into) shower or empty bathtub, initial encounter; Y93.E1 Activity, personal bathing and showering; Y92.002 Bathroom of unspecified non-institutional (private) residence as the place of occurrence of the external cause; Z88.8 Allergy status to other drugs, medicaments and biological substances
CPT/HCPCS: 99284; 81025; 72110; J3490

== ENCOUNTER 2017-07-18 11:07 | Emergency (ER) | payer OTHER ==
[2017-07-18] MEDS ORDERED: ONDANSETRON 4 MG TAB.RAPDIS PO ONE (11:37)
--- NOTE | 2017-07-18 11:39 | ER Document Report ---
ED Medical Screen (RME) - General Chief Complaint: Flu Symptoms Stated Complaint: VOMITING Time Seen by Provider: 07/18/17 11:37 Notes: Patient began getting sick about 9 days ago with runny nose, cough, and fever. She started vomiting yesterday and says she vomited about 10 times. No blood present yesterday, but is vomited 3 times this morning and has seen some "streaky" blood in the vomitus this morning. No heavy bleeding and no clots present. Patient has had diarrhea for the past week. No blood in the diarrhea. Patient's last menstrual cycle was in May. She is not on any control. Does not take any prescription medications for any medical condition. TRAVEL OUTSIDE OF THE [place] IN LAST 30 DAYS: No - Related Data Allergies/Adverse Reactions: tuberculin,PPD,multi-puncture Allergy (Intermediate, Verified 07/18/17 11:07) Hives Past Medical History - Social History Frequency of alcohol use: None Drug Abuse: None Pulmonary Medical History: Reports: Hx Asthma Neurological Medical History: Reports: Hx Migraine Renal/ Medical History: Denies: Hx Peritoneal Dialysis Past Surgical History: Reports: Hx Myringotomy, Other - Pilonidal cyst - Immunizations Immunizations up to date: No Hx Diphtheria, Pertussis, Tetanus Vaccination: No History of Influenza Vaccine for 02/2017 - 07/2017 Season: No Physical Exam - Vital signs Vitals: Temp Pulse Resp BP Pulse Ox 98.1 F 71 16 148/70 H 100 07/18/17 11:12 07/18/17 11:12 07/18/17 11:12 07/18/17 11:12 07/18/17 11:12 Course - Vital Signs Vital signs: Temp Pulse Resp BP Pulse Ox 98.1 F 71 16 148/70 H 100 07/18/17 11:12 07/18/17 11:12 07/18/17 11:12 07/18/17 11:12 07/18/17 11:12
--- NOTE | 2017-07-18 11:54 | ER Document Report ---
ED General - General Chief Complaint: Flu Symptoms Stated Complaint: VOMITING Time Seen by Provider: 07/18/17 11:37 Mode of Arrival: Ambulatory Information source: Patient TRAVEL OUTSIDE OF THE [place] IN LAST 30 DAYS: No - HPI Notes: 22-year-old female 2 para 3 presents today for complaints of nausea, vomiting x 2 days with loose stool that started yesterday. Denies any coffee ground emesis or black tarry stools. Patient reports her stools have been loose has not been watery. Reports decreased eating, has been drinking without issues. Patient states she has had nasal congestion, sore throat and dry cough 1 week ago. Patient does smoke half pack a day for the last 10 years. Reports she had wheezing but has since resolved itself approximately 4 days ago. Denies any fevers or chills. Patient states at a homeless [facility], states people around her have been feeling ill with a GI bug. Unsure of , last menstrual period was end of May. Patient has been sexually active without using any protection. Denies any bleeding disorders. Does not take a baby aspirin. Patient is not on control.Denies fevers, chills, chest pain,palpitations, shortness of breath, dyspnea, abdominal pain, hematuria,blurred vision, double vision, loss of vision, speech changes, LH, dizziness, syncope, headaches, wheezing, ST, URI, neck pain, weakness, bowel or bladder dysfunction, saddle anesthesia, numbness or tingling in bilateral upper or lower extremities equally, muscle paralysis, weakness in bilateral upper or lower extremities equally or rash. Denies IV drug use. - Related Data Allergies/Adverse Reactions: tuberculin,PPD,multi-puncture Allergy (Intermediate, Verified 07/18/17 11:07) Hives Past Medical History - General Information source: Patient - Social History Smoking Status: Current Every Day Smoker Frequency of alcohol use: None Drug Abuse: None Family History: CAD, COPD, DM, Hyperlipidemia, Hypertension, Malignancy. denies : Arthritis, CVA, Thyroid Disfunction Patient has suicidal ideation: No Patient has homicidal ideation: No Pulmonary Medical History: Reports: Hx Asthma Neurological Medical History: Reports: Hx Migraine Renal/ Medical History: Denies: Hx Peritoneal Dialysis Past Surgical History: Reports: Hx Myringotomy, Other - Pilonidal cyst - Immunizations Immunizations up to date: No Hx Diphtheria, Pertussis, Tetanus Vaccination: No Review of Systems - Review of Systems Notes: REVIEW OF SYSTEMS: CONSTITUTIONAL : Denies fever, chills, or sweats. Denies recent illness. EENT: Denies eye, ear, throat, or mouth pain or symptoms. Denies nasal or sinus congestion or discharge. Denies throat, tongue, or mouth swelling or difficulty swallowing. CARDIOVASCULAR: Denies chest pain. Denies palpitations or racing or irregular heart beat. Denies ankle edema. RESPIRATORY: reports cough, cold, or chest congestion. Denies shortness of breath, difficulty breathing, or wheezing. GASTROINTESTINAL: Denies abdominal pain or distention. Reports nausea, vomiting, and loose stool, denies diarrhea. Denies blood in vomitus, stools, or per rectum. Denies black, tarry stools. Denies constipation. GENITOURINARY: Denies difficulty urinating, painful urination, burning, frequency, blood in urine, or discharge. FEMALE GENITOURINARY: Denies vaginal bleeding, heavy or abnormal periods, irregular periods. Denies vaginal discharge or odor. MUSCULOSKELETAL: Denies back or neck pain or stiffness. Denies joint pain or swelling. SKIN: Denies rash, lesions or sores. HEMATOLOGIC : Denies easy bruising or bleeding. LYMPHATIC: Denies swollen, enlarged glands. NEUROLOGICAL: Denies confusion or altered mental status. Denies passing out or loss of consciousness. Denies dizziness or lightheadedness. Denies headache. Denies weakness or paralysis or loss of use of either side. Denies problems with gait or speech. Denies sensory loss, numbness, or tingling. Denies seizures. PSYCHIATRIC: Denies anxiety or stress. Denies depression, suicidal ideation, or homicidal ideation. ALL OTHER SYSTEMS REVIEWED AND NEGATIVE. Constitutional: No symptoms reported EENT: No symptoms reported Cardiovascular: No symptoms reported Respiratory: No symptoms reported Gastrointestinal: No symptoms reported Genitourinary: No symptoms reported Female Genitourinary: No symptoms reported Musculoskeletal: No symptoms reported Skin: No symptoms reported Hematologic/Lymphatic: No symptoms reported Neurological/Psychological: No symptoms reported Physical Exam - Vital signs Vitals: Temp Pulse Resp BP Pulse Ox 98.1 F 71 16 148/70 H 100 07/18/17 11:12 07/18/17 11:12 07/18/17 11:12 07/18/17 11:12 07/18/17 11:12 Interpretation: Normal Notes: PHYSICAL EXAMINATION: GENERAL: Well-appearing, well-nourished and in no acute distress. HEAD: Atraumatic, normocephalic. EYES: Pupils equal round and reactive to light, extraocular movements intact, conjunctiva are normal. ENT: TM intact with bilateral serous effusion, no erythema. Nares boggy bilaterally, oropharynx with erythema without exudates. Moist mucous membranes. NECK: Normal range of motion, supple without lymphadenopathy LUNGS: Breath sounds clear to auscultation bilaterally and equal. No wheezes rales or rhonchi. HEART: Regular rate and rhythm without murmurs ABDOMEN: Soft, nontender, nondistended abdomen. No guarding, no rebound. No masses appreciated. no cva tenderness Female : deferred Musculoskeletal: Normal range of motion, no pitting or edema. No cyanosis. NEUROLOGICAL: Cranial nerves grossly intact. Normal speech, normal gait. Normal sensory, motor exams PSYCH: Normal mood, normal affect. SKIN: Warm, Dry, normal turgor, no rashes or lesions noted. - Notes Notes: . PHYSICAL EXAMINATION: GENERAL: Well-appearing, well-nourished and in no acute distress. HEAD: Atraumatic, normocephalic. EYES: Pupils equal round and reactive to light, extraocular movements intact, conjunctiva are normal. ENT: TM with effusion bilateral nares patent, oropharynx clear without exudates. Moist mucous membranes. NECK: Normal range of motion, supple without lymphadenopathy LUNGS: Breath sounds clear to auscultation bilaterally and equal. No wheezes rales or rhonchi. HEART: Regular rate and rhythm without murmurs ABDOMEN: Soft, nontender, nondistended abdomen. No guarding, no rebound. No masses appreciated. no cva tenderness bilaterally Female : deferred Musculoskeletal: Normal range of motion, no pitting or edema. No cyanosis. NEUROLOGICAL: Cranial nerves grossly intact. Normal speech, normal gait. Normal sensory, motor exams PSYCH: Normal mood, normal affect. SKIN: Warm, Dry, normal turgor, no rashes or lesions noted. Dictation was performed using [employer] recognition software exam flu Course - Re-evaluation Re-evalutation: 07/18/17 13:52 A healthy 22-year-old female patient tolerated p.o. drinks as well as food while she was in the emergency room after she was given a p.o. dose of zofran 4mg ODT. Patient did not have any episodes of coughing, vomiting, diarrhea while she was in the ER. Patient appeared to be healthy and in good spirits. Informed patient that she was not . CBC was unremarkable, CMP was unremarkable as well, urinalysis showed that she does have a slight UTI, will treat accordingly with Macrobid. Will also prescribe patient Zofran ODT. Advised patient to take [id number] cough medication for her viral syndrome. Patient did not show any dehydration with a urinalysis, no ketones noted. Discussed the need to return to the ER for any new or worsening sx. Patient understands to take the Rx as directed. All questions answered. Patient comfortable with the decision to go home. - Vital Signs Vital signs: Temp Pulse Resp BP Pulse Ox 98 F 63 16 120/64 100 07/18/17 13:23 07/18/17 13:23 07/18/17 13:23 07/18/17 13:23 07/18/17 13:23 - Laboratory Result Diagrams: 07/18/17 11:50 07/18/17 11:50 Laboratory results interpreted by me: 07/18/17 07/18/17 11:50 11:50 RDW 15.5 H Ur Leukocyte Esterase SMALL H Discharge - Discharge Clinical Impression: Gastroenteritis UTI (urinary tract infection) Qualifiers: Urinary tract infection type: acute cystitis Hematuria presence: without hematuria Qualified Code(s): N30.00 - Acute cystitis without hematuria Condition: Good Disposition: HOME, SELF-CARE Instructions: Antinausea Medication ([facility]), Clear Liquid Diet ([facility]), Gastroenteritis (adult) ([facility]), OTC Antidiarrhea Medication ([facility]), Urinary Tract Infection ([facility]) Prescriptions: Ondansetron [Zofran Odt 4 mg Tablet] 1 - 2 tab PO Q4HP PRN #9 tab.rapdis PRN Reason: For Nausea/Vomiting Nitrofurantoin Monohyd/M-Cryst [Macrobid 100 mg Capsule] 100 mg PO BID #14 capsule Forms: Return to Work Referrals: EMMANUEL CHAHAL MD [COMMUNITY BASED STAFF] - Follow up in 3-5 days
[2017-07-18 12:10] LABS: APPEARANCE,URINE CLEAR; BILIRUBIN,URINE NEGATIVE (NEGATIVE); COLOR,URINE STRAW; GLUCOSE, URINE NEGATIVE (NEGATIVE); KETONES,URINE NEGATIVE (NEGATIVE); LEUKOCYTE ESTERASE,URINE SMALL (NEGATIVE); NITRITE,URINE NEGATIVE (NEGATIVE); PROTEIN,URINE NEGATIVE (NEGATIVE); URINE SPECIFIC GRAVITY 1.009; UROBILINOGEN,URINE NEGATIVE mg/dL (<2.0)
[2017-07-18 12:11] LABS: ABSOLUTE EOSINOPHILS # (AUTO) 0.2 10^3/uL (0.0-0.6); ABSOLUTE MONOCYTES (AUTO) 0.6 10^3/uL (0.1-1.4); ABSOLUTE NEUT (AUTO) 5.1 10^3/uL (1.7-8.2); BASOPHILS % (AUTO) 0.4 % (0-2); HEMATOCRIT 40.4 % (36.0-47.0); HEMOGLOBIN 13.5 g/dL (12.0-15.5); LYMPHOCYTES % (AUTO) 25.4 % (13-45); MEAN CORPUSCULAR HEMOGLOBIN 28.1 pg (27.0-33.4); MEAN CORPUSCULAR HGB CONC 33.5 g/dL (32.0-36.0); MEAN CORPUSCULAR VOLUME 84 fl (80-97); PLATELET COUNT 285 10^3/uL (150-450); RED BLOOD COUNT 4.82 10^6/uL (3.72-5.28); RED CELL DISTRIBUTION WIDTH 15.5 % (11.5-14.0); SEGMENTED NEUTROPHILS % (AUTO) 63.2 % (42-78); TOTAL CELLS COUNTED % (AUTO) 100 %
[2017-07-18 12:21] LABS: ALANINE AMINOTRANSFERASE 29 U/L (9-52); ALBUMIN 4.6 g/dL (3.5-5.0); ALKALINE PHOSPHATASE 61 U/L (38-126); ANION GAP 11 (5-19); ASPARTATE AMINO TRANSFERASE 15 U/L (14-36); BILIRUBIN,DIRECT 0.1 mg/dL (0.0-0.4); BILIRUBIN,TOTAL 0.2 mg/dL (0.2-1.3); BLOOD UREA NITROGEN 13 mg/dL (7-20); CALCIUM 9.9 mg/dL (8.4-10.2); CARBON DIOXIDE 26 mmol/L (22-30); CHLORIDE 106 mmol/L (98-107); GLUCOSE 88 mg/dL (75-110); LIPASE 58.9 U/L (23-300); POTASSIUM 4.5 mmol/L (3.6-5.0); SODIUM 143.2 mmol/L (137-145); TOTAL PROTEIN 6.7 g/dL (6.3-8.2)
[2017-07-18] MEDS ORDERED: NITROFURANTOIN MONOHYD/M-CRYST 100 MG CAPSULE PO ONE (12:54)
[2017-07-18 13:25] VITALS: BP 120/64
== END 2017-07-18 13:23 | disposition home or self-care (01) ==
LOC: ER 11:07
DX: K52.9 Noninfective gastroenteritis and colitis, unspecified (principal); N30.00 Acute cystitis without hematuria; B34.9 Viral infection, unspecified; R11.2 Nausea with vomiting, unspecified; J02.9 Acute pharyngitis, unspecified; R05 Cough; F17.200 Nicotine dependence, unspecified, uncomplicated; J45.909 Unspecified asthma, uncomplicated; Z59.0 Homelessness; Z88.7 Allergy status to serum and vaccine
CPT/HCPCS: 99283; 36415; 83690; 84703; 85025; 80053; 81001; S0119; J8499